=== PATIENT | male | born 1960 | race Caucasian/White ===

== ENCOUNTER 2023-01-06 14:00 | Outpatient (RCR) | payer OTHER, SELFPAY ==
--- NOTE | 2022-12-25 14:52 | MHC.PT.EP ---
[facility] [place] Office [place] Office [place] Office [address] Isreal Lacy [address] [phone] F: [phone] F: [phone] F: [phone] F: [phone] Physical Therapy Plan of Care Date of Evaluation: Date of Surgery: Diagnosis: Parkinsons Assessment: 62 y/o male referred to PT with Parkinsons. Reports dx with PD in 2019 with initial sx of LE tremors, R hand tremor, and peripheral neuropathy. Currently he notes freezing episodes, shuffling gait, and poor balance with walking, squatting, and stairs. He has been going to the [facility] for classes specifically for PD (spinning, circuit training, swimming). Examination shows grossly 5/5 B LE strength, mild forward trunk posture, soft voice, R hand tremor, B LE tremor in sitting, 11 second TUG, poor balance with eyes closed, and impaired gait pattern. Recommend PT 1x/week for 6 weeks to address impairments, implement HEP, and optimize functional mobility. Educated pt on BIG movements and utilizing arm swing as he demonstrates improved foot clearance and gait pattern with these cues. Frequency and Duration: The patient will be seen 1x/week for 6 weeks Short Term Goals: 3 weeks Compliant with HEP Pt will demonstrate B arm swing during gait > 50% of the time without cues Usp Goals: 6 weeks I with HEP and compliant with HEP Pt will improve TUG to 9 seconds Pt will be able to walk > 20 minutes with big movements and cues < 75% of the time Treatment Plan: Modalities to reduce pain, spasms and effusion. Manual therapy to restore motion and function. Therapeutic exercise to improve strength and flexibility. Neuromuscular re-education for posture and balance. Therapeutic activities to return to functional activities of daily living. Electronically signed by: Courtney Norwood PT Please sign and return to therapist. Thank you for your referral.
--- NOTE | 2023-01-07 13:21 | MHC.PT.DC ---
[facility] [place] Office [place] Office [place] Office [address] Isreal Lacy [address] [phone] F: [phone] F: [phone] F: [phone] F: [phone] Physical Therapy Discharge Report Diagnosis: Parkinsons Date of Surgery: Date of Evaluation: 12/25/22 Date of Discharge: 01/07/23 Treatments to Date: 2 Cancellations to Date: 0 No Shows to Date: 0 Discharge Status: Patient Elected to Stop Discharge Summary: Pt called to self d/c as he will be undergoing surgery for double inguinal hernia. He is to focus on upright posture and gait with arm swing and foot clearance. D/c at this time. Electronically signed by: Courtney Norwood , PT Please sign and return to therapist. Thank you for your referral.
--- NOTE | 2023-04-21 15:54 | MHC.PT.EP ---
[facility] [place] Office [place] Office [place] Office [address] Isreal Lacy [address] [phone] F: [phone] F: [phone] F: [phone] F: [phone] Physical Therapy Plan of Care Date of Evaluation: Date of Surgery: Diagnosis: Parkinsons Assessment: 62 y/o male referred to PT with Parkinsons. Reports dx with PD in 2019 with initial sx of LE tremors, R hand tremor, and peripheral neuropathy. Currently he notes freezing episodes, shuffling gait, and poor balance with walking, squatting, and stairs. He has been going to the [facility] for classes specifically for PD (spinning, circuit training, swimming). Examination shows grossly 5/5 B LE strength, mild forward trunk posture, soft voice, R hand tremor, B LE tremor in sitting, 11 second TUG, poor balance with eyes closed, and impaired gait pattern. Recommend PT 1x/week for 6 weeks to address impairments, implement HEP, and optimize functional mobility. Educated pt on BIG movements and utilizing arm swing as he demonstrates improved foot clearance and gait pattern with these cues. Frequency and Duration: The patient will be seen 1x/week for 6 weeks Short Term Goals: 3 weeks Compliant with HEP Pt will demonstrate B arm swing during gait > 50% of the time without cues Alf Goals: 6 weeks I with HEP and compliant with HEP Pt will improve TUG to 9 seconds Pt will be able to walk > 20 minutes with big movements and cues < 75% of the time Treatment Plan: Modalities to reduce pain, spasms and effusion. Manual therapy to restore motion and function. Therapeutic exercise to improve strength and flexibility. Neuromuscular re-education for posture and balance. Therapeutic activities to return to functional activities of daily living. Electronically signed by: Courtney Norwood PT Please sign and return to therapist. Thank you for your referral.
== END 2023-01-07 13:22 | disposition home or self-care (01) ==
LOC: HO.PT 14:00
PROVIDERS: PCP Family Medicine; Visit Provider Psychiatry & Neurology Neurology
DX: G20 Parkinson's disease (principal)
CPT/HCPCS: 97112; 97162

== ENCOUNTER → 2023-03-06 12:03 | Outpatient (BNVA) | payer OTHER, SELFPAY | PROVIDERS: PCP Family Medicine; Visit Provider Psychiatry & Neurology Neurology | DX: G20 Parkinson's disease (principal); G47.52 REM sleep behavior disorder; F41.9 Anxiety disorder, unspecified; F32.A Depression, unspecified ==

== ENCOUNTER 2023-06-09 10:00 | Outpatient (RCR) | payer OTHER, SELFPAY ==
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
--- NOTE | 2023-06-09 12:23 | MHC.PT.DC ---
[facility] [place] Office [place] Office [place] Office [address] Isreal Lacy [address] [phone] F: [phone] F: [phone] F: [phone] F: [phone] Physical Therapy Discharge Report Diagnosis: PD, gait training Date of Surgery: Date of Evaluation: 04/21/23 Date of Discharge: 06/09/23 Treatments to Date: 6 Cancellations to Date: 0 No Shows to Date: 0 Discharge Status: Achieved Goals Improved Function Independent with HEP Discharge Summary: Pt states that he feels ready for discharge and is doing better. Pt does better with verbal cues and mirroring to maintain big motions. Pt has met his goals. He has improved FGA to 24 (IR ) and his TUG avg is 7.5 sec (IR avg 11.67 sec), he demonstrates B arm swing during ambulation for >50% of the time w/o cues, has increased his walking tolerance, and is I with HEP. He is appropriate for d/c at this time. Electronically signed by: Courtney Norwood PT Please sign and return to therapist. Thank you for your referral.
== END 2023-06-09 12:24 | disposition home or self-care (01) ==
LOC: HO.PT 10:00
PROVIDERS: Visit Provider Psychiatry & Neurology Neurology
DX: G20 Parkinson's disease (principal)
CPT/HCPCS: 97110; 97162; 97530

== ENCOUNTER 2023-07-06 09:46 | Outpatient (AMB) | payer OTHER, SELFPAY ==
[2023-07-06 09:52] VITALS: BP 118/82; PULSE 78; O2SAT 98; BMI 24.1
--- NOTE | 2023-07-06 09:52 | MHC.OFFVIS ---
Intake Vital Signs 07/06/23 09:52 Height 6 ft Weight 177 lb 6 oz BMI 24.1 BP 118/82 Blood Pressure Location Rt brachial Position Sitting Pulse 78 Pulse Source Pulse Oximeter Pulse Oximetry (%) 98 Intake Visit Reasons: 4m fu Mando/Parkinsons-lvm Intake Note: Patient presents for 6 month follow up Allergies erythromycin base Allergy (Unknown, Verified 07/06/23 09:53) Unknown Medication List - Last Reconciled 07/06/23 by Kaila Mota MD carbidopa-levodopa 36.25-145 mg ER (Rytary) 2 caps PO QID 90 days chlordiazepoxide-clidinium 5-2.5 mg (Librax (with clidinium)) 1 cap PO ONCE PRN clobetasol 0.05% 1 appl topical DAILY hyoscyamine sulfate 0.125 mg PO DAILY PRN lisinopril 20 mg PO DAILY lorazepam 1 mg PO BID lubiprostone (Amitiza) 8 mcg PO DAILY rasagiline 1 mg PO DAILY HPI HPI Comments History of Present Illness Details 62y/o male comes for follow up of parkinsons disease. He reports nightmares , wakes up in a dream ,REM behavior disorder. He restarted melatonin but had nightmares. He stopped ambien .Now he takes ativan 1 1/2 mg qhs His mother 94 lives in [facility] and it has been difficult monitor her. He feels rytary does not help with tremors. Cognition- reports word recall difficulty , repeats Sleep- REM behavior disorder since childhood, sleep walking, sleep talking Mood-depression, anxiety- better since surgery Motivation- some mornings he cannot get up Speech- softer , monotonous No drooling He does not wnat to increase due to GI side effects writing -smaller , difficult to write dressing- difficult to button Utensils- normal shower- ok, has had several falls Falls - yes gait- slower off balance , freezing He has vertigo . He has h/o chronic back pain and sciatica. Bowel movements- Sees GI for constipation [facility] Medical History Anxiety Constipation Depression GERD (gastroesophageal reflux disease) HTN (hypertension) Inguinal hernia Insomnia Psoriasis RBD (REM behavioral disorder) Weight loss Surgical History History of hernia repair Family History Father Heart abnormality Mother Diabetes Social History Alcohol intake: current Alcohol intake frequency: 0-2 drinks per day Patient Tobacco Use Status: Never used Tobacco Physical Exam Vital Signs: Last Vital Signs Pulse 78 07/06/23 09:52 BP 118/82 07/06/23 09:52 Pulse Ox 98 07/06/23 09:52 BMI result Body Mass Index 24.1 Const General: cooperative, healthy appearing, comfortable and anxious Nutritional Appearance: average body habitus Orientation/consciousness: patient oriented x3 HEENT Head: Yes normal to inspection Eyes Pupils: Equal, round and reactive pupils present Neuro Other: Mild decreased facial expression blink Robert UE rest tremors moderate intensity FFM an dfoot taps decreased robert L>R Cog wheel rigidity R>L Gait stooped, slow , decreased arm swings General: patient oriented x3, moves all extremities and no focal motor deficits Cranial nerves: Yes Facial sensation intact/muscles of mastication intact, Yes Equal, round and reactive pupils present, Yes Bilaterally intact EOM present, Yes Nystagmus not present, Yes Normal facial strength present, Yes Midline tongue present and Yes Symmetric palate elevation present Cognition (Neuro): normal cognition Motor exam (neuro): 5/5 motor strength present throughout and Normal motor muscle tone present throughout Coordination: [id number] test normal Psych Speech and movement: Normal speech and movement present Affect: Anxious affect present Assessment & Plan Assessment & Plan (1) Parkinson's disease: Code(s): G20 - Parkinson's disease (2) RBD (REM behavioral disorder): Code(s): G47.52 - REM sleep behavior disorder (3) Anxiety: Code(s): F41.9 - Anxiety disorder, unspecified (4) Depression: Code(s): F32.A - Depression, unspecified Plan Continue rytary 36/145 2 caps qid He stopped rasagiline 1mg qdfor 2 weeks but he was tired and stopped PT for gait training was helpful Continue exercises and classes at [facility] I will trial him on clonazepam 0.5 mg qhs Stop ativan at bedtime - can be takes during daytime for anxiety as per psychiatrist. Discussed diet exercise etc. Medications: New clonazepam administer 30 minutes before bedtime 0.5 mg PO BEDTIME 30 tabs 1RF Changed From carbidopa-levodopa 36.25-145 mg ER (Rytary) divide evenly over waking hours 2 caps PO TID 90 days 540 caps 1RF To carbidopa-levodopa 36.25-145 mg ER (Rytary) divide evenly over waking hours 2 caps PO QID 90 days 720 caps 1RF Discontinued rasagiline Discontinued Reason: Patient no longer taking 1 mg PO DAILY 30 tabs 3RF Coding Level of Care Code Est Pt Level 4 (30063) Diagnoses Parkinson's disease G20 RBD (REM behavioral disorder) G47.52 Anxiety F41.9 Depression F32.A
== END 2023-07-06 10:24 | disposition home or self-care (01) ==
PROVIDERS: Visit Provider Psychiatry & Neurology Neurology
DX: G20 Parkinson's disease (principal); G47.52 REM sleep behavior disorder; F41.9 Anxiety disorder, unspecified; F32.A Depression, unspecified
CPT/HCPCS: 99214

== ENCOUNTER → 2023-07-06 09:46 | Outpatient (BNVA) | payer OTHER, SELFPAY | PROVIDERS: Visit Provider Psychiatry & Neurology Neurology | DX: G20 Parkinson's disease (principal); G47.52 REM sleep behavior disorder; F41.9 Anxiety disorder, unspecified; F32.A Depression, unspecified ==

== ENCOUNTER 2023-11-11 09:59 | Outpatient (AMB) | payer OTHER, SELFPAY ==
--- NOTE | 2023-11-11 10:05 | A.OFFVIS_ITS ---
Intake Vital Signs 11/11/23 10:06 Height 6 ft Weight 177 lb BMI 24.0 BP 124/82 Blood Pressure Location Rt brachial Position Sitting Pulse 74 Pulse Source Pulse Oximeter Pulse Oximetry (%) 98 Oxygen Delivery Method Room Air Intake Visit Reasons: 4m fu Mando/Parkinsons-Confirmed Intake Note: Patient presents for 4 month follow up Allergies erythromycin base Allergy (Unknown, Verified 11/11/23 10:07) Unknown Medication List - Last Reconciled 11/11/23 by Kaila Mota MD carbidopa-levodopa 36.25-145 mg ER (Rytary) 2 caps PO QID 90 days chlordiazepoxide-clidinium 5-2.5 mg (Librax (with clidinium)) 1 cap PO ONCE PRN citalopram 20 mg PO DAILY clobetasol 0.05% 1 appl topical DAILY clonazepam 0.5 mg PO BEDTIME hyoscyamine sulfate 0.125 mg PO DAILY PRN lisinopril 20 mg PO DAILY lorazepam 1 mg PO BID HPI HPI Comments History of Present Illness Details 63y/o male comes for follow up of abhijeet sons disease.He still has nightmares, REM behavior disorder - he tried clonazepam and lorazepam -he felt lorazepam helped better. His mother 94 lives in [facility] and it has been difficult monitor her. He feels rytary does not help with tremors. Cognition- reports word recall difficulty , repeats Sleep- REM behavior disorder since childhood, sleep walking, sleep talking Mood-depression, anxiety- better since surgery Motivation- some mornings he cannot get up Speech- softer , monotonous No drooling He does not want to increase due to GI side effects writing -smaller , difficult to write dressing- difficult to button Utensils- normal shower- ok, has had several falls Falls - yes gait- slower off balance , freezing He has vertigo . He has h/o chronic back pain and sciatica. Bowel movements- Sees GI for constipation [facility] Medical History Inguinal hernia RBD (REM behavioral disorder) Insomnia Psoriasis GERD (gastroesophageal reflux disease) Constipation Anxiety Depression Weight loss HTN (hypertension) Surgical History History of hernia repair Family History Father Heart abnormality Mother Diabetes Social History Alcohol intake: current Alcohol intake frequency: 0-2 drinks per day Patient Tobacco Use Status: Never used Tobacco Physical Exam Vital Signs: Last Vital Signs Pulse 74 11/11/23 10:06 BP 124/82 11/11/23 10:06 Pulse Ox 98 11/11/23 10:06 Oxygen Delivery Method Room Air 11/11/23 10:06 BMI result Body Mass Index 24.0 Const General: cooperative, healthy appearing, comfortable and anxious Nutritional Appearance: average body habitus Orientation/consciousness: patient oriented x3 HEENT Head: Yes normal to inspection Eyes Pupils: Equal, round and reactive pupils present Neuro Other: Mild decreased facial expression blink Bernadine UE rest tremors moderate intensity FFM an dfoot taps decreased bernadine L>R Cog wheel rigidity R>L Gait stooped, slow , decreased arm swings General: patient oriented x3, moves all extremities and no focal motor deficits Cranial nerves: Yes Facial sensation intact/muscles of mastication intact, Yes Equal, round and reactive pupils present, Yes Bilaterally intact EOM present, Yes Nystagmus not present, Yes Normal facial strength present, Yes Midline tongue present and Yes Symmetric palate elevation present Cognition (Neuro): normal cognition Motor exam (neuro): 5/5 motor strength present throughout and Normal motor muscle tone present throughout Coordination: [id number] test normal Psych Speech and movement: Normal speech and movement present Affect: Anxious affect present Assessment & Plan Assessment & Plan (1) Parkinson's disease: Code(s): G20 - Parkinson's disease (2) RBD (REM behavioral disorder): Code(s): G47.52 - REM sleep behavior disorder (3) Anxiety: Code(s): F41.9 - Anxiety disorder, unspecified (4) Depression: Code(s): F32.A - Depression, unspecified Plan Continue rytary 36/145 2 caps qid citalopram 20mg qd PT for gait training was helpful Continue exercises and classes at [facility] Lorazepam 1mg qhs to bid Discussed diet exercise etc. Medications: Refilled carbidopa-levodopa 36.25-145 mg ER (Rytary) divide evenly over waking hours 2 caps PO QID 720 caps 3RF 90 days Coding Level of Care Code Est Pt Level 4 (32396) Diagnoses Parkinson's disease G20 RBD (REM behavioral disorder) G47.52 Anxiety F41.9 Depression F32.A
[2023-11-11 10:06] VITALS: BP 124/82; PULSE 74; O2SAT 98; BMI 24.0
== END 2023-11-11 10:30 | disposition home or self-care (01) ==
PROVIDERS: PCP Family Medicine; Visit Provider Psychiatry & Neurology Neurology
DX: G20.A2 Parkinson's disease without dyskinesia, with fluctuations (principal); G47.52 REM sleep behavior disorder; F41.9 Anxiety disorder, unspecified; F32.A Depression, unspecified
CPT/HCPCS: 99214

== ENCOUNTER → 2023-11-11 09:59 | Outpatient (BNVA) | payer OTHER, SELFPAY | PROVIDERS: PCP Family Medicine; Visit Provider Psychiatry & Neurology Neurology | DX: G47.52 REM sleep behavior disorder (principal); F41.9 Anxiety disorder, unspecified; F32.A Depression, unspecified ==

== ENCOUNTER 2024-03-16 07:28 | Outpatient (AMB) | payer MEDICARE, OTHER, SELFPAY ==
--- NOTE | 2024-03-16 07:40 | MHC.OFFVIS ---
Vital Signs 03/16/24 07:41 Height 6 ft Weight 188 lb 6 oz BMI 25.5 BP 124/72 Blood Pressure Location Rt brachial Position Sitting Respiration 16 Pulse 62 Pulse Source Pulse Oximeter Pulse Oximetry (%) 98 Oxygen Delivery Method Room Air Intake Visit Reasons: 4 mo f/u - Mando/parkinson-CONF Intake Note: Pt preents for 4 month follow up for Parkinson's. Reticle Printer Required: No Allergies erythromycin base Allergy (Unknown, Verified 03/16/24 07:40) Unknown Medication List - Last Reconciled 03/16/24 by Kaila Mota MD carbidopa-levodopa 36.25-145 mg ER (Rytary) 2 caps PO QID 90 days clobetasol 0.05% 1 appl topical DAILY hyoscyamine sulfate 0.125 mg PO DAILY PRN lisinopril 20 mg PO DAILY HPI Comments Details: 64y/o male comes for follow up of parkinsons disease.He is scheduled for thyroid biopsy and is anxious about it.He stopped clonazepam, citalopram,ativan since Dec 2023. He stopped seeing a psychiatrist. He does not want to restart medications. He nightmares, REM behavior disorder are worse with stopping medications. Physically he doing OK. He is exercising regularly His mother 94 lives in [facility] and it has been difficult monitor her. He feels rytary does not help with tremors. Cognition- reports word recall difficulty , repeats Sleep- REM behavior disorder since childhood, sleep walking, sleep talking Mood-depression, anxiety- worse Motivation- some mornings he cannot get up Speech- softer , monotonous writing -smaller , difficult to write dressing- difficult to button Utensils- normal shower- ok, has had several falls Falls - none since last visit gait- slower off balance , freezing He has vertigo . He has h/o chronic back pain and sciatica. Bowel movements- Sees GI for constipation [facility] Medical History (Updated 03/16/24 @ 08:04 by Kaila Mota MD) Parkinson's disease without dyskinesia, without mention of fluctuations Parkinson's disease without dyskinesia, with fluctuating manifestations Inguinal hernia RBD (REM behavioral disorder) Insomnia Psoriasis GERD (gastroesophageal reflux disease) Constipation Anxiety Depression Weight loss HTN (hypertension) Surgical History History of hernia repair Family History Father Heart abnormality Mother Diabetes Social History Alcohol intake: current Alcohol intake frequency: 0-2 drinks per day Patient Tobacco Use Status: Never used Tobacco Physical Exam Vital Signs: Last Vital Signs Pulse 62 03/16/24 07:41 Resp 16 03/16/24 07:41 BP 124/72 03/16/24 07:41 Pulse Ox 98 03/16/24 07:41 Oxygen Delivery Method Room Air 03/16/24 07:41 BMI result Body Mass Index 25.5 Const General: cooperative, healthy appearing, comfortable and anxious Nutritional Appearance: average body habitus Orientation/consciousness: patient oriented x3 HEENT Head: Yes normal to inspection Eyes Pupils: Equal, round and reactive pupils present Neuro Other: Mild decreased facial expression blink Very mild left hand rest tremors moderate intensity FFM and foot taps decreased bernadine L>R- mild Cog wheel rigidity R>L Gait stooped, slow , decreased arm swings General: patient oriented x3, moves all extremities and no focal motor deficits Cranial nerves: Yes Facial sensation intact/muscles of mastication intact, Yes Equal, round and reactive pupils present, Yes Bilaterally intact EOM present, Yes Nystagmus not present, Yes Normal facial strength present, Yes Midline tongue present and Yes Symmetric palate elevation present Cognition (Neuro): normal cognition Motor exam (neuro): 5/5 motor strength present throughout and Normal motor muscle tone present throughout Coordination: [id number] test normal Psych Speech and movement: Normal speech and movement present Affect: Anxious affect present Assessment & Plan Assessment & Plan (1) Parkinson's disease without dyskinesia, without mention of fluctuations: Code(s): G20.A1 - Parkinson's disease without dyskinesia, without mention of fluctuations Category: Medical (2) RBD (REM behavioral disorder): Code(s): G47.52 - REM sleep behavior disorder Category: Medical (3) Anxiety: Code(s): F41.9 - Anxiety disorder, unspecified Category: Medical (4) Depression: Code(s): F32.A - Depression, unspecified Category: Medical Plan Continue rytary 36/145 2 caps qid Restart clonazepam 0.5mg 1-2 tabs qhs Continue exercises and classes at [facility] Discussed diet exercise etc. Medications: New clonazepam administer 30 minutes before bedtime 1 mg (2 x 0.5 mg) PO BEDTIME 60 tabs 3RF Coding Level of Care Code Est Pt Level 4 (24417) Diagnoses Parkinson's disease without dyskinesia, without mention of fluctuations G20.A1 RBD (REM behavioral disorder) G47.52 Anxiety F41.9 Depression F32.A
[2024-03-16 07:41] VITALS: BP 124/72; PULSE 62; RESP 16; O2SAT 98; BMI 25.5
== END 2024-03-16 08:14 | disposition home or self-care (01) ==
PROVIDERS: PCP Family Medicine; Visit Provider Psychiatry & Neurology Neurology
DX: G20.A1 Parkinson's disease without dyskinesia, without mention of fluctuations (principal); G47.52 REM sleep behavior disorder; F41.9 Anxiety disorder, unspecified; F32.A Depression, unspecified
CPT/HCPCS: 99214

== ENCOUNTER → 2024-03-16 07:28 | Outpatient (BNVA) | payer OTHER, SELFPAY | PROVIDERS: PCP Family Medicine; Visit Provider Psychiatry & Neurology Neurology ==

== ENCOUNTER 2024-08-10 08:32 | Outpatient (AMB) | payer MEDICARE, OTHER, SELFPAY ==
[2024-08-10 08:39] VITALS: BP 118/68; PULSE 69; RESP 16; O2SAT 98; BMI 25.0
--- NOTE | 2024-08-10 08:39 | A.OFFVIS_ITS ---
Vital Signs 08/10/24 08:39 Height 6 ft Weight 184 lb 6 oz BMI 25.0 BP 118/68 Blood Pressure Location Rt brachial Position Sitting Respiration 16 Pulse 69 Pulse Source Pulse Oximeter Pulse Oximetry (%) 98 Oxygen Delivery Method Room Air Intake Visit Reasons: Follow up Mando/parkinson Intake Note: Pt presents for a 5 month follow up for Parkinson's. 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 His mother in April 24- which worsened his anxiety - as he had to deal with paperwork, sibling etc. He stopped citalopram,ativan since Dec 2023. He stopped seeing a psychiatrist. He is on clonazepam 0.5 mg 2 tabs qhs helps his REM behavior disorder Physically he doing OK. He is exercising regularly now due to travelling to [place] often and he feels that has slowed him down.He goes to a Parkinsons program at the . Cognition- reports word recall difficulty , repeats- its worse. Sleep- REM behavior disorder since childhood, sleep walking, sleep talking better with clonazepam Mood-depression, anxiety- worse Motivation- some mornings he cannot get up Speech- softer , monotonous writing -smaller , difficult to write dressing- difficult to button Utensils- normal shower- ok, has had several falls Falls - none since last visit gait- slower off balance , freezing He has vertigo . He has h/o chronic back pain and sciatica. Bowel movements- Sees GI for constipation [facility] Medical History (Updated 08/10/24 @ 09:15 by Kaila Mota MD) Word finding difficulty Parkinson's disease without dyskinesia, without mention of fluctuations Parkinson's disease without dyskinesia, with fluctuating manifestations Inguinal hernia RBD (REM behavioral disorder) Insomnia Psoriasis GERD (gastroesophageal reflux disease) Constipation Anxiety Depression Weight loss HTN (hypertension) Surgical History History of hernia repair Family History Father Heart abnormality Mother Diabetes Social History Alcohol intake: current Alcohol intake frequency: 0-2 drinks per day Patient Tobacco Use Status: Never used Tobacco Physical Exam Vital Signs: Last Vital Signs Pulse 69 08/10/24 08:39 Resp 16 08/10/24 08:39 BP 118/68 08/10/24 08:39 Pulse Ox 98 08/10/24 08:39 Oxygen Delivery Method Room Air 08/10/24 08:39 BMI result Body Mass Index 25.0 Const General: cooperative, healthy appearing, comfortable and anxious Nutritional Appearance: average body habitus Orientation/consciousness: patient oriented x3 HEENT Head: Yes normal to inspection Eyes Pupils: Equal, round and reactive pupils present Neuro Other: Mild decreased facial expression blink Very mild left hand rest tremors moderate intensity FFM and foot taps decreased bernadine L>R- mild Cog wheel rigidity R>L Gait stooped, slow , decreased arm swings General: patient oriented x3, moves all extremities and no focal motor deficits Cranial nerves: Yes Facial sensation intact/muscles of mastication intact, Yes Equal, round and reactive pupils present, Yes Bilaterally intact EOM present, Yes Nystagmus not present, Yes Normal facial strength present, Yes Midline tongue present and Yes Symmetric palate elevation present Cognition (Neuro): normal cognition Motor exam (neuro): 5/5 motor strength present throughout and Normal motor muscle tone present throughout Coordination: [id number] test normal Psych Speech and movement: Normal speech and movement present Affect: Anxious affect present Assessment & Plan Assessment & Plan (1) Parkinson's disease without dyskinesia, without mention of fluctuations: Code(s): G20.A1 - Parkinson's disease without dyskinesia, without mention of fluctuations Category: Medical (2) RBD (REM behavioral disorder): Code(s): G47.52 - REM sleep behavior disorder Category: Medical (3) Anxiety: Code(s): F41.9 - Anxiety disorder, unspecified Category: Medical (4) Depression: Code(s): F32.A - Depression, unspecified Category: Medical (5) Word finding difficulty: Code(s): R47.89 - Other speech disturbances Category: Medical Plan Continue rytary 36/145 2 caps qid Continue clonazepam 0.5mg 1-2 tabs qhs Continue exercises and classes at [facility] Discussed diet exercise etc. Speech and cognitive therapy Orders: Referrals 2 Speech and Hearing Referral G20.A1 - Parkinson's disease without dyskinesia, without mention of fluctuations, R47.89 - Other speech disturbances Medications: Refilled carbidopa-levodopa 36.25-145 mg ER (Rytary) divide evenly over waking hours 2 caps PO QID 90 days 720 caps 3RF Coding Level of Care Code Est Pt Level 4 (18828) Complex EM visit Add On G2211 Diagnoses Parkinson's disease without dyskinesia, without mention of fluctuations G20.A1 RBD (REM behavioral disorder) G47.52 Anxiety F41.9 Depression F32.A Word finding difficulty R47.89
== END 2024-08-10 09:20 | disposition home or self-care (01) ==
PROVIDERS: PCP Nurse Practitioner Family; Visit Provider Psychiatry & Neurology Neurology
DX: G20.A1 Parkinson's disease without dyskinesia, without mention of fluctuations (principal); G47.52 REM sleep behavior disorder; F41.9 Anxiety disorder, unspecified; F32.A Depression, unspecified; R47.89 Other speech disturbances
CPT/HCPCS: 99214; G2211

== ENCOUNTER → 2024-08-10 08:32 | Outpatient (BNVA) | payer MEDICARE, OTHER, SELFPAY | PROVIDERS: PCP Nurse Practitioner Family; Visit Provider Psychiatry & Neurology Neurology | DX: G20.A1 Parkinson's disease without dyskinesia, without mention of fluctuations (principal); G47.52 REM sleep behavior disorder; F41.9 Anxiety disorder, unspecified; F32.A Depression, unspecified; R47.89 Other speech disturbances | CPT/HCPCS: 99212 ==

== ENCOUNTER 2025-01-13 10:08 | Outpatient (AMB) | payer MEDICARE, OTHER, SELFPAY ==
[2025-01-13 10:19] VITALS: BP 118/80; PULSE 56; O2SAT 98; BMI 25.4
--- NOTE | 2025-01-13 10:19 | MHC.OFFVIS ---
Vital Signs 01/13/25 10:19 Height 6 ft Weight 187 lb BMI 25.4 BP 118/80 Blood Pressure Location Rt brachial Position Sitting Pulse 56 Pulse Source Pulse Oximeter Pulse Oximetry (%) 98 Oxygen Delivery Method Room Air Intake Visit Reasons: Follow up Mando/parkinson-lvm to r/s Intake Note: follow up speech therapy done on 09/14/24. patient has had 2 falling down episodes. tumble,tripping and falling down since last visit Allergies erythromycin base Allergy (Unknown, Verified 01/13/25 10:22) Unknown Medication List - Last Reconciled 01/13/25 by Kaila Mota MD alpha lipoic acid 100 mg PO DAILY B-complex with vitamin C 1 cap PO DAILY carbidopa-levodopa 36.25-145 mg ER (Rytary) 2 caps PO QID 90 days clobetasol 0.05% 1 appl topical DAILY clonazepam 1.5 mg (3 x 0.5 mg) PO BEDTIME hyoscyamine sulfate 0.125 mg PO DAILY PRN lisinopril 20 mg PO DAILY lubiprostone mcg PO HPI Comments Details: 64y/o male comes for follow up of Parkinsons disease. He had 2 falls since last visit. Both the falls were at night when he got up to use the bathroom . It was dark . but now he mitchell slights in his room and it helps. Anxiety is better with the paperwork related to his mothers has been dealt with. He is on clonazepam 0.5 mg 3 tabs qhs helps his REM behavior disorder Physically he doing OK. He used to exercise regularly Cognition- reports word recall difficulty , repeats- its worse. Sleep- REM behavior disorder since childhood, sleep walking, sleep talking better with clonazepam Mood-depression, anxiety- worse Motivation- some mornings he cannot get up Speech- softer , monotonous writing -smaller , difficult to write dressing- difficult to button Utensils- normal shower- ok, has had several falls Falls - none since last visit gait- slower off balance , freezing He has vertigo . He has h/o chronic back pain and sciatica. Bowel movements- Sees GI for constipation [facility] Medical History Word finding difficulty Parkinson's disease without dyskinesia, without mention of fluctuations Parkinson's disease without dyskinesia, with fluctuating manifestations Inguinal hernia RBD (REM behavioral disorder) Insomnia Psoriasis GERD (gastroesophageal reflux disease) Constipation Anxiety Depression Weight loss HTN (hypertension) Surgical History History of hernia repair Family History Father Heart abnormality Mother Diabetes Social History Alcohol intake: current Alcohol intake frequency: 0-2 drinks per day Patient Tobacco Use Status: Never used Tobacco Physical Exam Vital Signs: Last Vital Signs Pulse 56 01/13/25 10:19 BP 118/80 01/13/25 10:19 Pulse Ox 98 01/13/25 10:19 Oxygen Delivery Method Room Air 01/13/25 10:19 BMI result Body Mass Index 25.4 Const General: cooperative, healthy appearing, comfortable and anxious Nutritional Appearance: average body habitus Orientation/consciousness: patient oriented x3 HEENT Head: Yes normal to inspection Eyes Pupils: Equal, round and reactive pupils present Neuro Other: Mild decreased facial expression blink Very mild left hand rest tremors moderate intensity FFM and foot taps decreased bernadine L>R- mild Cog wheel rigidity R>L Gait stooped, slow , decreased arm swings General: patient oriented x3, moves all extremities and no focal motor deficits Cranial nerves: Yes Facial sensation intact/muscles of mastication intact, Yes Equal, round and reactive pupils present, Yes Bilaterally intact EOM present, Yes Nystagmus not present, Yes Normal facial strength present, Yes Midline tongue present and Yes Symmetric palate elevation present Cognition (Neuro): normal cognition Motor exam (neuro): 5/5 motor strength present throughout and Normal motor muscle tone present throughout Coordination: [id number] test normal Psych Speech and movement: Normal speech and movement present Affect: Anxious affect present Assessment & Plan Assessment & Plan (1) Parkinson's disease without dyskinesia, without mention of fluctuations: Code(s): G20.A1 - Parkinson's disease without dyskinesia, without mention of fluctuations Category: Medical (2) RBD (REM behavioral disorder): Code(s): G47.52 - REM sleep behavior disorder Category: Medical (3) Anxiety: Code(s): F41.9 - Anxiety disorder, unspecified Category: Medical (4) Depression: Code(s): F32.A - Depression, unspecified Category: Medical (5) Word finding difficulty: Code(s): R47.89 - Other speech disturbances Category: Medical Plan Continue rytary 36/145 2 caps qid - still has oFF periods and has difficulty tolerating . suggested to take it with food and discussed about Vyalev Continue clonazepam 0.5mg 3 tabs qhs Discussed diet exercise etc. Speech and cognitive therapy Increase fluid intake Restart exericse INFO ON VYALEV was given . Coding Level of Care Code Est Pt Level 4 (41411) Complex EM visit Add On G2211 Diagnoses Parkinson's disease without dyskinesia, without mention of fluctuations G20.A1 RBD (REM behavioral disorder) G47.52 Anxiety F41.9 Depression F32.A Word finding difficulty R47.89
== END 2025-01-13 11:03 | disposition home or self-care (01) ==
PROVIDERS: PCP Nurse Practitioner Family; Visit Provider Psychiatry & Neurology Neurology
DX: G20.A1 Parkinson's disease without dyskinesia, without mention of fluctuations (principal); G47.52 REM sleep behavior disorder; F41.9 Anxiety disorder, unspecified; F32.A Depression, unspecified; R47.89 Other speech disturbances
CPT/HCPCS: 99214; G2211

== ENCOUNTER → 2025-01-13 10:08 | Outpatient (BNVA) | payer MEDICARE, OTHER, SELFPAY | PROVIDERS: PCP Nurse Practitioner Family; Visit Provider Psychiatry & Neurology Neurology | DX: G20.A1 Parkinson's disease without dyskinesia, without mention of fluctuations (principal); G47.52 REM sleep behavior disorder; F41.9 Anxiety disorder, unspecified; R47.89 Other speech disturbances; F32.A Depression, unspecified | CPT/HCPCS: 99212 ==

== ENCOUNTER 2025-06-01 10:23 | Outpatient (AMB) | payer MEDICARE, OTHER, SELFPAY ==
[2025-06-01 10:31] VITALS: BP 120/80; PULSE 73; O2SAT 94; BMI 25.8
--- NOTE | 2025-06-01 10:31 | A.OFFVIS_ITS ---
Vital Signs 06/01/25 10:31 Height 6 ft Weight 190 lb BMI 25.8 BP 120/80 Blood Pressure Location Lt brachial Position Sitting Pulse 73 Pulse Source Pulse Oximeter Pulse Oximetry (%) 94 Oxygen Delivery Method Room Air Intake Visit Reasons: Follow up Mando/parkinson Intake Note: Patient following up for Parkinson's disease without dyskinesia, without mention of fluctuations Sugar Presser Required: No Accompanied by: Self / Same As Patient Allergies erythromycin base Allergy (Unknown, Verified 06/01/25 10:32) Unknown Medication List - Last Reconciled 06/01/25 by Kaila Mota MD alpha lipoic acid 100 mg PO DAILY B-complex with vitamin C 1 cap PO DAILY carbidopa-levodopa 36.25-145 mg ER (Rytary) 2 caps PO QID 90 days clobetasol 0.05% 1 appl topical DAILY clonazepam 1.5 mg (3 x 0.5 mg) PO BEDTIME hyoscyamine sulfate 0.125 mg PO DAILY PRN linaclotide (Linzess) 290 mcg PO DAILY lisinopril 20 mg PO DAILY lubiprostone mcg PO pregabalin 50 mg PO DAILY HPI Comments Details: 65y/o male comes for follow up of Parkinsons disease. He reports an episode few mths ago of waking up in the middle of the night- gets dressed, he is convinced he is in someone else house, he goes out , confused- sat out for sometime. This happened just before he increased the clonazepam dose . since the increase no further episodes. .He had 1 falls since last visit.tripped and fell He is still very anxious, says he has multiple triggers but mainly his IBS . He is on clonazepam 0.5 mg 3 tabs qhs helps his REM behavior disorder Physically he doing OK. He used to exercise regularly Cognition- reports word recall difficulty , repeats- its worse. Sleep- REM behavior disorder since childhood, sleep walking, sleep talking better with clonazepam Mood-depression, anxiety- worse Motivation- some mornings he cannot get up Speech- softer , monotonous writing -smaller , difficult to write dressing- difficult to button Utensils- normal shower- ok, has had several falls Falls - none since last visit gait- slower off balance , freezing He has vertigo . He has h/o chronic back pain and sciatica. Bowel movements- Sees GI for constipation [facility] Medical History Word finding difficulty Parkinson's disease without dyskinesia, without mention of fluctuations Parkinson's disease without dyskinesia, with fluctuating manifestations Inguinal hernia RBD (REM behavioral disorder) Insomnia Psoriasis GERD (gastroesophageal reflux disease) Constipation Anxiety Depression Weight loss HTN (hypertension) Surgical History History of hernia repair Family History Father Heart abnormality Mother Diabetes Social History Alcohol intake: current Alcohol intake frequency: 0-2 drinks per day Patient Tobacco Use Status: Never used Tobacco Physical Exam Vital Signs: Last Vital Signs Pulse 73 06/01/25 10:31 BP 120/80 06/01/25 10:31 Pulse Ox 94 06/01/25 10:31 Oxygen Delivery Method Room Air 06/01/25 10:31 BMI result Body Mass Index 25.8 Const General: cooperative, healthy appearing, comfortable and anxious Nutritional Appearance: average body habitus Orientation/consciousness: patient oriented x3 HEENT Head: Yes normal to inspection Eyes Pupils: Equal, round and reactive pupils present Neuro Other: Mild decreased facial expression blink Very mild left hand rest tremors moderate intensity FFM and foot taps decreased bernadine L>R- mild Cog wheel rigidity R>L Gait stooped, slow , decreased arm swings General: patient oriented x3, moves all extremities and no focal motor deficits Cranial nerves: Yes Facial sensation intact/muscles of mastication intact, Yes Equal, round and reactive pupils present, Yes Bilaterally intact EOM present, Yes Nystagmus not present, Yes Normal facial strength present, Yes Midline tongue present and Yes Symmetric palate elevation present Cognition (Neuro): normal cognition Motor exam (neuro): 5/5 motor strength present throughout and Normal motor muscle tone present throughout Coordination: [id number] test normal Psych Speech and movement: Normal speech and movement present Affect: Anxious affect present Assessment & Plan Assessment & Plan (1) Parkinson's disease without dyskinesia, without mention of fluctuations: Code(s): G20.A1 - Parkinson's disease without dyskinesia, without mention of fluctuations Category: Medical (2) RBD (REM behavioral disorder): Code(s): G47.52 - REM sleep behavior disorder Category: Medical (3) Anxiety: Code(s): F41.9 - Anxiety disorder, unspecified Category: Medical (4) Depression: Code(s): F32.A - Depression, unspecified Category: Medical (5) Word finding difficulty: Code(s): R47.89 - Other speech disturbances Category: Medical Plan Continue rytary 36/145 2 caps qid - still has oFF periods and has difficulty tolerating . suggested to take it with food and discussed about Vyalev Continue clonazepam 0.5mg 3 tabs qhs Increase pregabalin 75 mg qhs Discussed diet exercise etc. Increase fluid intake Restart exericse INFO ON VYALEV was given . Coding Level of Care Code Est Pt Level 4 (96440) Complex EM visit Add On G2211 Diagnoses Parkinson's disease without dyskinesia, without mention of fluctuations G20.A1 RBD (REM behavioral disorder) G47.52 Anxiety F41.9 Depression F32.A Word finding difficulty R47.89
== END 2025-06-01 11:12 | disposition home or self-care (01) ==
LOC: HO.HSMS 10:23
PROVIDERS: PCP Nurse Practitioner Family; Visit Provider Psychiatry & Neurology Neurology
DX: G20.A1 Parkinson's disease without dyskinesia, without mention of fluctuations (principal); G47.52 REM sleep behavior disorder; F41.9 Anxiety disorder, unspecified; F32.A Depression, unspecified; R47.89 Other speech disturbances
CPT/HCPCS: 99214; G2211

== ENCOUNTER → 2025-06-01 10:23 | Outpatient (BNVA) | payer MEDICARE, OTHER, SELFPAY | PROVIDERS: PCP Nurse Practitioner Family; Visit Provider Psychiatry & Neurology Neurology | DX: G20.A1 Parkinson's disease without dyskinesia, without mention of fluctuations (principal); F41.9 Anxiety disorder, unspecified; G47.52 REM sleep behavior disorder; R47.89 Other speech disturbances; F32.A Depression, unspecified | CPT/HCPCS: 99212 ==

== ENCOUNTER → 2025-09-20 11:59 | Outpatient (RCR) | payer MEDICARE, OTHER, SELFPAY ==
--- NOTE | 2024-09-14 12:23 | MHC.SP.ADU ---
Referring provider: Kaila Duvall Reason for Referral: Parkinson's Disease/Other Speech Disturbances Type of Treatment: 31608 Standardized Cognitive Performance Testing, per hour Date of Plan of Treatment: 09/07/24 Onset of Symptoms/Illness: 04/22/21 Date Treatment Started: 09/07/24 Medical Diagnosis: Parkinson's Disease, Word Finding Difficulty, Anxiety, Depression, REM Behavioral Disorder Primary Speech Language Diagnosis: G20 Parkinson?s disease Secondary Speech Language Diagnosis: I69.911 Memory deficit History Roberto Stevenson is a 64 year old man who was referred for assessment for cognitive therapy by his neurologist, Kaila Salmon M.D. 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 Roberto was diagnosed with Parkinson's disease six years ago, and due to the difficulties he was encountering performing his job due to his due to PD, he retired at age 60 in 2020. 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 This period was particularly stressful as he had conflicts with his sister. Roberto stated that in the moment when he is trying to think of the word in context of what he is communicating, he goes blank. He reported that his is supportive when he is struggling expressing himself, but he finds his lapses extremely frustrating and preoccupying. Roberto reported that he has struggled with anxiety and depression as a result of his illness and sequelae. He stated that he had been seeing a psychotherapist who had been very helpful to him, but upon turning 64 and transitioning to Medicare, his therapist could no longer provide services to him. He has not been able to find another provider who takes Medicare. 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 However he also commented that he has no desire to be loud. Roberto attends a Parkinson's program at the [facility], where he participates and designs his own exercise program. He stated, however, that neuropathy in his feet has kept him from doing many preferred activities, including hiking. He also reported that he has lost motivation to travel or consider retiring to a location with a better climate, and says he infrequently goes out or connects with friends. He further stated that he can no longer enjoy a life long talent of guitar playing, due to his tremor. Roberto reports that he is still driving, and has had his check him to assure that he still can be reliable and safe. Roberto and his have been a long time residents of [place], and have an adult daughter. Medical History: Medication List: Please see chart. Recent Hospitalizations: No Respiratory Needs: Room Air Patient Orientation: Alert & Oriented x 4 Social History: Employment Status: Retired Highest level of education obtained: Completed Doctorate Current Living Situation: Lives with his in a private home in [place]. Past Speech Language Therapy: None Other Therapies Seen in Current Calendar Year: None Reported Speech, Language, Cognition difficulties: Memory, Word Finding, Voice Comments: Roberto presents with moderate to severe difficulties with short term auditory memory and remote recall of information, mild issues with wordfinding in the context of conversation, and mild issues with vocal volume/dysphonia. Quality of Life: Good Patient Stated Goal of Speech-Language Therapy: Assess to determine direction for cognitive, language or voice therapy. Assessment Speech Production: Clinical Impression: Intact Observations: N/A. Roberto produced fluent and articulate speech throughout this assessment. Informal Voice Assessment: Voice Loudness: Mildly Soft/Quiet Voice Nasal Resonance: WFL Voice Oral Resonance: WFL Voice Phonatory-based Quality: Breathy Voice Pitch: Normal Clinical Impression: Impaired Clinicial Observations: Roberto was administered the Consensus Auditory Perceptual Evaluation of Voice (CAPE-V). On this evaluation, Roberto demonstrated a mildly reduced vocal volume and a mild, breathy vocal quality. Notably, he was able to vary vocal volume when prompted, produce sustained vowel sounds in the 80-90 dB range, and could vary his pitch in specific tasks presented. Additionally Roberto presented with normal ability to sequence speech sounds when asked to produce diodochokinetic sequences (P/T/K). Roberto presents with mild dysphonia (breathiness/ reduced breath support for speech) and mildly reduced volume. Tests of Speech & Lang Adults: BNT Clinical Impression: Impaired Observations: To challenge for word finding needs, Roberto was administered the complete assessment of the [place] Naming Test, which assess confrontation naming in adults. Roberto worked quickly through this test, finding only 4 out of items a challenge to label/recall. ON errors, he notably responded to phonemic cuing to trigger the word. On one item, a line drawing of a [place] mask, Roberto noted it was a matrimonial mask. When later this was noted as a possible misnomer, he clearly stated that he intended that descriptor, referring to a well known movie where similar masks were part of a robbery caper. While Roberto's performance on this task is within functional limits, it is evident in conversation and even in self/narrative or thought, Roberto struggles to retrieve words and terminology that he would normally have great facility for. 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 Tests of Cognition: RBANS Clinical Impression: Impaired Observations: Test administered: RBANS, Repeatable Battery for the Assessment of Neuropsychological Status: The RBANS-Updated Form A briefly assesses aspects of cognitive memory, language, and attention skills. The RBANS is considered a screening battery for cognitive function and is repeatable for the purpose of evaluating any changes in function. It is intended for use with adolescents and adults, ages 12 to 89 years. Composite domains assessed in this test are: Immediate Memory, Visuospatial/Constructional, Language, Attention, and Delayed Memory. Interpretation of test performance is based on normative data on individuals between ages 60-60. Roberto?s performance is summarized below: IMMEDIATE MEMORY: This domain assesses the individual's ability to remember information immediately after it is presented. Roberto was read a list of 10 words and asked to repeat back as many words as he could. He was read the same list four times. Initially, Roberto recalled a single word from the list. On subsequent trials, he appeared to apply a strategy to recall the information (he noted later ?recency/latency? strategy) and recalled 6-7 words per subsequent trial. On the Story Memory task a brief story is read to the examiner two times and they are asked to recall as many details as possible. Roberto again had some difficulty recalling details on the first reading, but demonstrated some improvement on the second trial, indicating learning and/or use of a strategy. Despite evident strategies used, both scores, cumulatively, were below average, however, indicating a significant weakness in short term memory for auditory information. List Learning Total Score: 20 Scaled Score: 4 Interpretation: Below Average Story Memory Total Score: 12 Scaled Score: 5 Interpretation: Below Average Immediate Memory Index Score: 69 Percentile: 2 Interpretation: Below average VISUOSPATIAL/CONSTRUCTIONAL: This domain assesses the individual's ability to perceive spatial relations and to construct a spatially accurate copy of a drawing. During the Figure Copy task, Roberto was given an example of a specific figure to copy onto a piece of paper. Individuals are scored on both the drawing accuracy and placement of 10 different target items. Roberto?s drawing was nearly identical to the example drawing; with an error on only one element. Roberto demonstrated some initial visual confusion/inaccuracy on the Line Orientation task, in which an individual is asked to match two lines below to a series of numbered lines above. However, he again appeared to apply a strategy and improved as he progressed through this task. Figure Copy Total Score: 19 Scaled Score: 11 Interpretation: Average Line Orientation Total Score: 14 Percentile Group: 16-25 Interpretation: Low Average Visuospatial/Constructional Index Score: 92 Percentile: 26 Interpretation: Low Average LANGUAGE: This domain assesses the individual's ability to respond verbally to either naming or retrieving learned material. Roberto was asked to name the word of various line drawings in a responsive naming task and then asked to name as many fruits and vegetables as he could in one minute in a Semantic Fluency task. Roberto accurately named 10 of 10 drawings with relative ease. Roberto produced 20 fruits and vegetables in one minute. He stated he visualized a produce section to assist with this task. Picture Naming Total Score: 10 Percentile Group: 50-75 Interpretation: Average Semantic Fluency Total Score: 20 Scaled Score: 9 Interpretation: Average Language Index Score: 98 Percentile: 48 Interpretation: Average ATTENTION: This domain assesses the individual's capacity to remember and manipulate both visually and orally presented information in short-term memory storage Roberto was read aloud strings of numbers of varying lengths then asked to recall the numbers. Roberto recalled strings of numbers up to 4 digits with good accuracy and 6 digits with some errors. In the coding subtest, Roberto was asked to write numbers to their matching symbols as quickly and efficiently as possible within 90 seconds. Roberto worked slowly but accurately through this task, marking 33 symbols in allotted time. Digit Span Total Score: 9 Scaled Score: 8 Interpretation: Low Average Coding Total Score: 33 Scaled Score: 6 Interpretation: Borderline Attention Index Score: 82 Percentile: 10 Interpretation: Below Average DELAYED MEMORY: This domain assesses the individual's anterograde memory capacity. Low scores indicate difficulties with recognition and retrieval of information from long-term memory stores. Roberto recalled no words out of the 10 wordlist that was presented to him earlier in the testing, noting ?It?s a blank.? When given a recognition task (i.e. ?Was apple on the list??), Roberto answered these yes/no questions with some improvement in recall, however still with some struggle to recall items. On recalling the story that was read to him at the beginning of the assessment, Roberto recalled 5 out of 12 caraballo details of the story read to him earlier. Finally, when asked to recall the figure he torrie with relatively good accuracy at the beginning of the test, he was able to recall some basic elements of the drawing, but omitted many of the details. He was noted to cue himself with verbal analogies for some of the items (?bubbles? for small circles, ?sabianist symbol? for the cross). This domain again was a significant struggle for Roberto, with scores falling in the below average range. List Recall Total Score: 0 Percentile Group: < .2 Interpretation: Well Below Average List Recognition Total Score: 14 Percentile Group: < .2 Interpretation: Well Below Average Story Recall Total Score: 5 Scaled Score: 5 Interpretation: Below Average Figure Recall Total Score: 9 Scaled Score: 7 Interpretation: Borderline Average Delayed Memory Index Score: 60 Percentile: .4 Interpretation: Below Average Sum of Index Scores: 401 Total Scale Score: 75 Percentile: 5 Interpretation: Below Average Walt Gilliam (1998). Repeatable Battery for the Assessment of Neuropsychological Status [Manual]. Francisco PA: Ron. Impressions and Recommendations Summary: Roberto presents with a moderate to severe impairment of his short term auditory memory and remote memory retrieval. He additionally presents with mild word finding issues that are evident, if infrequent, at the conversational level, but very concerning to him. Finally, Roberto demonstrates mild dysphonia (breathy, soft vocal quality). All areas noted are likely directly related to his advancing Parkinson's Disease. Roberto's difficulty with memory may cause him great difficulty recalling new information, details, brief data presented auditorily. This may be most evident when verbal directions are given, or phone numbers are recited for recall, or specific dates or other information is briefly given and not written down. However, this level of difficulty with short term memory can also affect general comprehension in daily activities such as difficulty recalling details from conversations, repeating conversational information, following and recalling plot lines and details in media or reading. Roberto's difficulty with delayed recall/memory will may also affect new learning, making changes in routines, synthesizing new information or data, or acquiring new skills very difficult. 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 Further, when Roberto was confronted with challenging memory tasks on this evaluation, it was evident that he actively worked to use a cognitive strategy to tackle the problems presented. Roberto's mild voice issues may affect his communication/ability to be heard and understood in settings with background noise, when encountering new people, or speaking to more than one person. Roberto notably expressed no concerns about his voice, and stated that he did not want to be loud. Roberto is very concerned about his word finding difficulties, finding his difficulty with retrieving specific words in context and going blank, extremely frustrating. It is likely that in contexts where this occurs, anxiety is an exacerbating factor. Roberto may benefit, if he electively chooses, from direct cognitive therapy to develop strategies/meta awareness of his memory issues and word finding needs. He also may benefit from Vocal Therapy that is specifically designed for Parkinson's patients that targets improving vocal loudness and quality (LSVT Loud). Both types of therapeutic interventions were discussed with Roberto at the end of the session, with Roberto expressing uncertainty if either would be something he would be interested in committing to, but that he would continue to consider. If he elects to particpate in therapy, cognitive intervention would be the priority, or the first intervention that should be offered. Impact on Daily Function/Activity Limitations: Daily Activities: Moderate Interpersonal Interactions: Mild-Moderate Community: Mild-Moderate Prognosis for Improvement: Good Recommendation for Speech Therapy: Outpatient Speech Therapy Frequency/Duration: One forty five minute therapy session weekly Date Range for Service Requested: For a period of 6-8 weeks. Time to Reassess: PRN Assisted Goals: Roberto will apply strategies, applications and accommodations to manage tasks that require immediate recall and processing in four out of five contexts. Short Term Goals: Goal # : 1.1: Roberto will use a rehearsal strategy to recall a detail or specific information from visual or verbal presented information with 80% accuracy Goal Status: Goal# : 2.1: Roberto will use a visualization strategy to recall a detail or specific information from verbally presented information with 80% accuracy. Goal Status: Goal # : 3.1 Roberto will use an association strategy to retain and retrieve specific information from visually or verbally presented information with 80% accuracy. Goal Status: Goal # : 4.1: Roberto will electively use an elisabet or tech device to record and retrieve needed information in four out of five contexts. Goal Status: Patient Education: Completed: Yes Patient/Caregiver Education: Described Results of Evaluation Patient expressed understanding of evaluation Comments/Barriers to Learning: Director Workers Compensation Clinican/Clinical Fellow: No Supervisory Statement: N/A Speech Language Pathologist: Aileen Kay M.A., CCC-UNIONMELT OPERATOR
== END | disposition home or self-care (01) ==
LOC: HO.SH 09-07 11:35
PROVIDERS: PCP Nurse Practitioner Family; Visit Provider Psychiatry & Neurology Neurology
DX: G20.A1 Parkinson's disease without dyskinesia, without mention of fluctuations (principal); R47.89 Other speech disturbances
CPT/HCPCS: 96125

== ENCOUNTER 2025-10-04 08:34 | Outpatient (AMB) | payer MEDICARE, OTHER, SELFPAY ==
[2025-10-04 08:41] VITALS: BP 120/76; PULSE 70; O2SAT 99; BMI 26.1
--- NOTE | 2025-10-04 08:41 | MHC.OFFVIS ---
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 He denies any new symptoms. He denies any new abnormal sleep arousal episodes or RBD . He has occasional vivid dreams No falls. he has a personal loan specialist that helps him with working out. Mood is stable He is on clonazepam 0.5 mg 3 tabs qhs helps his REM behavior disorder Physically he doing OK. He used to exercise regularly Cognition- reports word recall difficulty , repeats- its worse. Sleep- REM behavior disorder since childhood, sleep walking, sleep talking better with clonazepam Mood-depression, anxiety- worse Motivation- some mornings he cannot get up Speech- softer , monotonous writing -smaller , difficult to write dressing- difficult to button Utensils- normal shower- ok, has had several falls Falls - none since last visit gait- slower off balance , freezing He has vertigo . He has h/o chronic back pain and sciatica. Bowel movements- Sees GI for constipation [facility] Medical History Word finding difficulty Parkinson's disease without dyskinesia, without mention of fluctuations Parkinson's disease without dyskinesia, with fluctuating manifestations Inguinal hernia RBD (REM behavioral disorder) Insomnia Psoriasis GERD (gastroesophageal reflux disease) Constipation Anxiety Depression Weight loss HTN (hypertension) Surgical History History of hernia repair Family History Father Heart abnormality Mother Diabetes Social History Alcohol intake: current Alcohol intake frequency: 0-2 drinks per day Patient Tobacco Use Status: Never used Tobacco Physical Exam Vital Signs: Last Vital Signs Pulse 70 10/04/25 08:41 BP 120/76 10/04/25 08:41 Pulse Ox 99 10/04/25 08:41 Oxygen Delivery Method Room Air 10/04/25 08:41 BMI result Body Mass Index 26.1 Const General: cooperative, healthy appearing, comfortable and anxious Nutritional Appearance: average body habitus Orientation/consciousness: patient oriented x3 HEENT Head: Yes normal to inspection Eyes Pupils: Equal, round and reactive pupils present Neuro Other: Mild decreased facial expression blink Very mild left hand rest tremors moderate intensity FFM and foot taps decreased bernadine L>R- mild Cog wheel rigidity R>L Gait stooped, slow , decreased arm swings General: patient oriented x3, moves all extremities and no focal motor deficits Cranial nerves: Yes Facial sensation intact/muscles of mastication intact, Yes Equal, round and reactive pupils present, Yes Bilaterally intact EOM present, Yes Nystagmus not present, Yes Normal facial strength present, Yes Midline tongue present and Yes Symmetric palate elevation present Cognition (Neuro): normal cognition Motor exam (neuro): 5/5 motor strength present throughout and Normal motor muscle tone present throughout Coordination: [id number] test normal Psych Speech and movement: Normal speech and movement present Affect: Anxious affect present Assessment & Plan Assessment & Plan (1) Parkinson's disease without dyskinesia, without mention of fluctuations: Code(s): G20.A1 - Parkinson's disease without dyskinesia, without mention of fluctuations Category: Medical (2) RBD (REM behavioral disorder): Code(s): G47.52 - REM sleep behavior disorder Category: Medical (3) Anxiety: Code(s): F41.9 - Anxiety disorder, unspecified Category: Medical (4) Depression: Code(s): F32.A - Depression, unspecified Category: Medical (5) Word finding difficulty: Code(s): R47.89 - Other speech disturbances Category: Medical Plan Continue rytary 36/145 2 caps qid - he is doing better Continue clonazepam 0.5mg 3 tabs qhs Increase pregabalin 100 mg qhs Discussed diet exercise etc. Increase fluid intake Restart exercise INFO ON VYALEV was given . Medications: Changed From pregabalin 75 mg PO DAILY 30 caps 2RF To pregabalin 100 mg PO DAILY 30 caps 4RF Refilled clonazepam administer 30 minutes before bedtime 1.5 mg (3 x 0.5 mg) PO BEDTIME 90 tabs 3RF Coding Level of Care Code Est Pt Level 4 (66318) Complex EM visit Add On G2211 Diagnoses Parkinson's disease without dyskinesia, without mention of fluctuations G20.A1 RBD (REM behavioral disorder) G47.52 Anxiety F41.9 Depression F32.A Word finding difficulty R47.89
--- OUTSIDE RECORDS SUMMARY | 2025-10-04 08:52 | XMS_ITS | Clinical Summary ---
Author Organization [facility] Address [address] [place], [place] [id number] Phone Care Team Providers Care Asphalt Spreader Name Role Phone Griselda Simeon LOCKSTITCH SLEEVE MAKER Primary Care Provider Allergies Active Allergy Reactions Criticality Noted Date Comments Erythromycin Low 06/18/2021 Abdominal pain Fluoxetine Low 06/18/2021 Abdominal pain Medications carbidopa-levod opa (SINEMET) 25-100 mg per tablet TAKE 1 TABLET BY MOUTH EVERY MORNING AND 1 TABLET BY MOUTH AT NOON AND 1 TABLET BY MOUTH AT 5PM 1 Active clidinium-chlor diazePOXIDE (LIBRAX) 5-2.5 mg per capsule TAKE 1 CAPSULE BY MOUTH THREE TIMES DAILY WITH MEALS 1 Active clobetasol (CLOBEX) 0.05 % shampoo 1 Active gabapentin (NEURONTIN) 600 MG tablet Take 600 mg by mouth 2 (two) times a day. 1 Active LINZESS 145 mcg Cap Take 145 mcg by mouth daily. 1 Active lisinopril (PRINIVIL,ZESTR IL) 20 MG tablet Take 20 mg by mouth every morning. 1 Active LORazepam (ATIVAN) 1 MG tablet Take 1 mg by mouth 2 (two) times a day as needed. 1 Active zolpidem (AMBIEN) 10 mg tablet Take 10 mg by mouth nightly at bedtime. at bedtime. 1 Active clonazePAM (KLONOPIN) 0.5 MG tablet TAKE 2 TABLETS BY MOUTH AT BEDTIME 30 MINUTES PRIOR TO BEDTIME 4 Active lubiprostone (AMITIZA) 24 MCG capsule Take 24 mcg by mouth 2 (two) times a day. Active hyoscyamine (ANASPAZ,LEVSIN ) 0.125 mg ODT 0 Refills, Maintenance, 12/30/22 10:04:00 EST, Partial fill upon patient request if the prescription is for a schedule II opioid drug. 3 Active polyethylene glycol 3350 (MIRALAX ORAL) Take 17 g by mouth. 3 Active docusate sodium (COLACE) 100 MG capsule Take 100 mg by mouth. 3 Active mupirocin (BACTROBAN) 2 % ointment Apply topically 3 (three) times a day. 22 g 4 Active magnesium hydroxide 400 mg/5 mL Susp Take 1,200 mg by mouth. 4 Active Active Problems No known active problems Immunizations Immunization Administration Dates Next Due COVID-19 (Pre-09/14) Pfizer Vaccine, mRNA, PF ,01/31/2021 Influenza Quadrivalent Preservative Free IM 04/2020 Social History Tobacco Use Types Packs/Day Years Used Date Smoking Tobacco: Never Smokeless Tobacco: Never Tobacco Cessation:Counseling Given: Not Answered Education Answer Date Recorded Are you interested in more education? Not on quentin e 03/21/2023 Are you concerned about learning? Not on file 03/21/2023 No 03/21/2023 No 03/21/2023 Digital Access Answer Date Recorded No 04/19/2023 No 04/19/2023 Reliable internet access at home? Not on file 04/19/2023 Device with a working camera? Not on file Sex and Gender Information Value Date Recorded Sex Assigned at Not on file Legal Sex Male 8:58 AM EDT Gender Identity Not on file Sexual Orientation Not on file Last Filed Vital Signs Vital Sign Reading Time Taken Comments Blood Pressure 126/84 05/15/2024 10:16 AM EDT Pulse 68 05/15/2024 10:16 AM EDT Temperature 36.9 C (98.5 F) 05/15/2024 10:16 AM EDT Respiratory Rate 20 05/15/2024 10:16 AM EDT Oxygen Saturation 99% 05/15/2024 10:16 AM EDT Inhaled Oxygen Concentration - - Weight 84.4 kg (186 lb) 05/15/2024 10:16 AM EDT Height - - Body Mass Index - - Plan of Treatment Health Maintenance Due Date Last Done Comments Adult Td,Tdap Booster 1959 CREATININE LEVEL 1959 LIPID PANEL 1959 POTASSIUM LEVEL 1959 DEPRESSION SCREENING 1971 HEPATITIS C SCREENING 1977 COLOGUARD 02/16/2004 COLONOSCOPY 02/16/2004 COLORECTAL CANCER SCREENING 02/16/2004 FIT TEST 02/16/2004 FOBT 02/16/2004 SIGMOIDOSCOPY 02/16/2004 VIRTUAL COLONOSCOPY 02/16/2004 PNEUMOCOCCAL VACCINES (50+ years) (1 of 1 - PCV) 2009 ZOSTER VACCINES (1 of 2) 2009 INFLUENZA VACCINE (#1) 2025 , 07/08/2021, 07/29/2020 COVID-19 VACCINE ( season) 2025 08/15/2023, 08/26/2022, 02/28/2022, Additional history exists RSV VACCINE (1 - 1-dose 75+ series) 2034 SMOKING STATUS SCREENING (Once After 26 Yrs) Completed 05/15/2024 HEPATITIS A VACCINES Aged Out No long er eligible based on patient's age to complete this topic HIB VACCINES Aged Out No longer eligi ble based on patient's age to complete this topic IPV VACCINES Aged Out No longer eligi ble based on patient's age to complete this topic MENINGOCOCCAL VACCINES (ACWY) Aged Out No longer eligible based on patient's age to complete this topic MENINGOCOCCAL VACCINES (B) Aged Out N o longer eligible based on patient's age to complete this topic Medical Devices Not on file Insurance [facility] MEDICARE SUPPLEMENT MEDICARE PART A & B MEDICARE SUPPLEMENT MEDICARE PART A & B [facility] MEDICARE SUPPLEMENT [facility] [place] MEDICARE SUPPLEMENT MEDICARE SUPP[place] PART A & [place] [id number] [place] MEDICARE SUPPLE[place] [address] MEDICARE SUPPLEMENT Member Subscriber Plan / Payer (Ef fective 2024-Present) Name:Roberto Stevenson Relation to Subscriber:Self Name:Roberto Stevenson Payer ID:Not on file Type:Indemnity Address: [address] [place] [id number] MEDICARE PART A & [place] [address] MEDICARE SUPPLEMENT MEDICARE PART A & B Member Subscriber Plan / Payer (Ef fective 2024-Present) Name:Roberto Stevenson Member ID:[id number] Relation to Subscriber:Self Name:Roberto Stevenson Subscriber ID:[id number] Payer ID:[id number] Group ID:Not on file Type:Medicare Address: [employer] [address] [facility] MEDICARE SUPPLEMENT MEDICARE PART A & B Care Teams Asphalt Spreader Relationship Specialty Start Date End Date Griselda Simeon NP [address] [place] [id number] PCP - General Nurse Practitioner 04/11/24 Additional Source Comments The information contained in this document represents components of the legal health record. It is not the complete legal health record.[facility]
== END 2025-10-04 09:35 | disposition home or self-care (01) ==
LOC: HO.HSMS 08:35
PROVIDERS: PCP Nurse Practitioner Family; Visit Provider Psychiatry & Neurology Neurology
DX: G20.A1 Parkinson's disease without dyskinesia, without mention of fluctuations (principal); G47.52 REM sleep behavior disorder; F41.9 Anxiety disorder, unspecified; F32.A Depression, unspecified; R47.89 Other speech disturbances
CPT/HCPCS: 99214; G2211

== ENCOUNTER → 2025-10-04 08:34 | Outpatient (BNVA) | payer MEDICARE, OTHER, SELFPAY | PROVIDERS: PCP Nurse Practitioner Family; Visit Provider Psychiatry & Neurology Neurology | DX: G20.A1 Parkinson's disease without dyskinesia, without mention of fluctuations (principal); F41.9 Anxiety disorder, unspecified; G47.52 REM sleep behavior disorder; R47.89 Other speech disturbances; F02.A4 Dementia in other diseases classified elsewhere, mild, with anxiety | CPT/HCPCS: 99212 ==